=== PATIENT | female | born 1960 | race Caucasian/White ===

== ENCOUNTER → 2023-12-06 16:15 | Outpatient (REF) | payer BC, SELFPAY | LOC: RAD 16:15 | PROVIDERS: ATTENDING PHYSICIAN Physician Assistant; FAMILY PHYSICIAN Student in an Organized Health Care Education/Training Program | DX: M25.551 Pain in right hip (principal); M54.50 Low back pain, unspecified | CPT/HCPCS: 72100; 73502 ==

== ENCOUNTER → 2023-12-23 17:26 | Outpatient (REF) | payer BC, SELFPAY | LOC: WDC 17:26 | PROVIDERS: ATTENDING PHYSICIAN Obstetrics & Gynecology Gynecology; FAMILY PHYSICIAN Student in an Organized Health Care Education/Training Program | DX: Z12.31 Encounter for screening mammogram for malignant neoplasm of breast (principal); Z85.3 Personal history of malignant neoplasm of breast | CPT/HCPCS: 77063; 77067 ==

== ENCOUNTER → 2024-03-16 06:36 | Day surgery (SDC) | payer BC, SELFPAY | LOC: GI 06:36 | PROVIDERS: ATTENDING PHYSICIAN Specialist | DX: Z12.11 Encounter for screening for malignant neoplasm of colon (principal); K63.5 Polyp of colon; K57.30 Diverticulosis of large intestine without perforation or abscess without bleeding; R19.7 Diarrhea, unspecified; K29.70 Gastritis, unspecified, without bleeding; K31.7 Polyp of stomach and duodenum; R10.13 Epigastric pain; Z86.0101 Personal history of adenomatous and serrated colon polyps | CPT/HCPCS: 45380; 43239; 88305; 88342 ==

== ENCOUNTER → 2024-05-18 13:44 | Outpatient (REF) | payer BC, SELFPAY | LOC: HWRCS 13:44 | PROVIDERS: ATTENDING PHYSICIAN Internal Medicine Cardiovascular Disease; FAMILY PHYSICIAN Student in an Organized Health Care Education/Training Program | DX: I42.9 Cardiomyopathy, unspecified (principal); E78.00 Pure hypercholesterolemia, unspecified; R00.2 Palpitations; R00.0 Tachycardia, unspecified | CPT/HCPCS: 93306 ==

== ENCOUNTER 2024-06-16 06:34 | Inpatient (IN) | payer BC, SELFPAY ==
[2024-06-16] VITALS (12 sets, daily range): BP systolic 103–158; BP diastolic 70–95; BMI 29.3; BMI 29.0
--- NOTE | 2024-06-16 02:56 | ED.GENMED ---
History of Present Illness
General
Chief Complaint: Breathing Problem
Source: patient
Exam Limitations: none
Time Seen by Provider: 06/16/24 02:48
Nursing documentation reviewed up to this point in time: agreed with
History of Present Illness
History of Present Illness:
Pleasant 63-year-old female presenting with right upper back pain that she states 'feels like a blood clot '. She states that tonight she awakened with tachycardia and dyspnea. Patient finished Paxlovid on June 10 after being diagnosed with
COVID on June 05. Patient denies fever or chills. Denies chest pain.
Past History
Past History
ED Past Medical History: GERD, Hypothyroidism and Other (BREAST CA)
ED Past Surgical History: Tonsilectomy and Other (H. has a history of lumpectomy on the left breast with excision, port insertion,)
Social History
Tobacco: Non-smoker
Alcohol: Occasional
Drug: None
Personal:
Living: with family
Employment: Employed
Review of Systems
Review of Systems
Allergies reviewed?: Yes
All Other Systems: ROS reviewed and negative except as documented in HPI and ROS
Constitutional: Reports sleep disturbance; Denies fever or chills
EENT: Reports no symptoms
Respiratory: Reports trouble breathing
Cardiac: Reports chest pain
ABD/GI: Reports no symptoms
: Reports no symptoms
Musculoskeletal: Reports back pain
Skin: Reports no symptoms
Neurological: Reports no symptoms
Endocrine: Reports no symptoms
Hematologic/Lymphatic: Reports no symptoms
Psychiatric: Reports no symptoms
Phy Exam
General Physical Exam
General Presentation: well appearing and moderate distress
General Skin: warm and dry
General Habitus: normal
General Mental: alert
General Hydration: appears well hydrated
ENT Exam
ENT Exam: EOMI, pharynx normal, neck supple and normocephalic
Eye Exam
Eye Exam: PERRL, cornea clear and conjunctiva normal
Cardiovascular Exam
Cardiovascular Exam: regular rate/rhythm, no edema, no murmur and normal peripheral pulses
Pulmonary Exam
Pulmonary Exam: lungs clear, no respiratory distress, no rales, no crackles, no rhonchi, no stridor, no wheezing and no cough
Gastrointestinal Exam
Gastrointestinal Exam: normal bowel sounds, non tender, soft, no organomegaly, no pulsatile mass and non distended
Neurological Exam
Neurological Exam: alert, oriented x3, no motor deficits and speech normal
Musculoskeletal Exam
Musculoskeletal Exam: full ROM, no edema and other (Negative Homans' sign bilaterally)
Skin Exam
Skin Exam: normal color, warm/dry, no rash and no petechia
Psychiatric Exam
Psychiatric Exam: normal mood/affect
Scores
Heart Failure Risk
Heart Failure Risk Score: Not Applicable
Course
Orders/Labs/Results
Orders:
Orders
06/16/24 02:28
Electrocardiogram (*1) Urgent
Reason for Study: Other
Other Reason for Exam: Respiratory Distress
Cardiac Monitoring- Treatment ONCE
EKG- Treatment ONCE
IV Insert/Care/Rem.- Treatment PRN
CR Chest - 2 Views Urgent
Comment:
Reason For Exam: respiratory distress
O2 Therapy [RESP] Urgent
Titrate/Wean O2 to maintain O2 sat greater than (%): 93
Special Instructions: TO MAINTAIN CONTINUOUS O2 SATS >/= 93%
Pulse Ox/cont/shift [RESP] Urgent
Quantity: 1
Special Instructions: continuous pulse ox
06/16/24 02:42
CT Chest PE Study Urgent
Comment:
Reason For Exam: covid 8 days ago,. CP/Tachy/Dyspena
06/16/24 03:56
Complete Blood Count/With Diff Urgent
Comprehensive Metabolic Panel Urgent
NT-proBNP Urgent
TSH Reflex To Free T4 Routine
Troponin I Urgent
06/16/24 05:06
Morphine Sulfate 4 mg IV NOW STA
Ondansetron Injectable [Zofran] 4 mg IV NOW STA
06/16/24 05:33
Heparin 6,200 units IV NOW STA
Nursing to Place Non Medication Order As Directed
Physician Order: PTT 6 hours after initial start of Heparin infusion
Above order entered?: Yes
06/16/24 05:35
PTT Urgent
Comment: Obtain baseline before beginning heparin infusion if not already collected
Prothrombin Time Urgent
06/16/24 Breakfast
Regular
At Your Request: Full Participation
Levothyroxine [Synthroid] 100 mcg PO DAILY@0600
06/16/24 06:02
Admit/Transfer Patient As Directed
Co-Sign Provider:
Level of Care: Inpatient admission
Assign to:: Telemetry
Physician / Group: Richard
Diagnosis: PE
Reason for Telemetry: Chest Pain syndromes
Date to Stop Telemetry: 06/18/24
Time to Stop Telemetry: 11:00
Reason for Hospitalization: PE
Expected length of stay greater than two midnights?: Yes
ELOS- Estimated Length of Stay in days: 2
I certify the patient meets the requirements for IP care: Yes
PRN Pain Medication Management As Directed
May give lesser potent ordered pain med per pt: Yes
preference::
Protocol:: Medication orders for pain may be administered in a
manner that supports deferring to patient preference
when the pt is:
- Requesting an ordered lesser potent pain medication.
Least to most potent pain medications are defined
as: acetaminophen < NSAID < tramadol < opioids
(morphine, oxycodone, hydromorphone).
- Requesting a lesser dose of the same medication IF
ORDERED.
- Requesting a less intrusive route of administration
if both routes are prescribed by the provider (PO <
IV).
06/16/24 06:03
Code Status As Directed
Resuscitation Status: Full Code
06/16/24 06:30
Heparin 98587 Units/250 ml 25,000 units in 250 ml IV PER PROTOCOL
Weight to be used for heparin protocol in kilograms (kg):: 77.5
Protocol:: DVT/PE
PTT Goal Range to be used:: PTT 73 to 111 seconds
Order type:: Initial
INITIAL Infusion Dose (UNITS/KG/hr) & then follow protocol:: 18 units/kg/hr
Infusion Dose in UNITS/hr & then follow protocol (UNITS/hr):: 1,400
INFUSION RATE in mL/hr & then follow protocol (mL/hr):: 14
For DVT/PE algorithm, re-bolus for low PTT?: Yes
PTT less than or equal to 64 seconds:: Re-bolus 80 units/kg (max 10,000units). Increase by 300 units/hr
(+ 3mL/hr)
PTT 64.1 to 72.9 seconds:: Re-bolus 40 units/kg (max 5,000 units). Increase by 200 units/hr
(+ 2mL/hr)
PTT 73 to 111 seconds:: Target Range. No change in rate.
PTT 111.1 to 130.9 seconds:: Decrease rate by 200 units/hr (- 2 mL/hr)
PTT 131 to 199.9 seconds:: HOLD for 1 hr. Then decrease by 200 units/hr (- 2mL/hr)
PTT greater than or equal to 200 seconds:: HOLD for 2 hrs & Notify Provider. Then decrease by 300 units/hr
(- 3mL/hr)
Lab follow-up:: Each change, PTT q6h until 2 consecutive are therapeutic. Then
PTT daily.
06/16/24 06:58
Acetaminophen [Tylenol] 650 mg PO Q4HPRN PRN
Morphine Sulfate 2 mg IV Q4HPRN PRN
06/16/24 06:58
Heparin Protocol- PTT Orders As Directed
PTT per Heparin protocol: -Obtain CBC and baseline PTT - if not already collected.
-Obtain PTT 6 hours from start of infusion. Then, every 6 hours until 2 consecutive
PTT's are therapeutic. Then, PTT Daily.
-With each rate change, obtain PTT every 6 hours until 2 consecutive PTT's are
therapeutic. Then, PTT Daily.
Activity As Directed
Activity Level: Ambulate
With Assistance
EKG with chest pain [ECG as needed] As Directed
ECG as needed for:: Chest Pain
I/O [Intake/ Output] As Directed
Frequency: Per unit guidelines
Notify MD As Directed
Notify physician if: PTT is greater than or equal to 200.
Precautions As Directed
Type of Precautions: Droplet
Vital Signs As Directed
Frequency: Per unit guidelines
Weight As Directed
Frequency: Daily
Oxygen Therapy [O2 Therapy] [RESP] Routine
Titrate/Wean O2 to maintain O2 sat greater than (%): 94
US Periph Venous LOWER Ext Bj Routine
Comment: Not urgent. Already on anticoagulation.
Reason For Exam: PE, ? DVT
06/16/24 08:00
Aspirin Chewable [Low Strength Aspirin] 81 mg PO DAILY
Dapagliflozin [Farxiga] 10 mg PO DAILY
Lisinopril [Zestril] 2.5 mg PO DAILY
Metoprolol [Lopressor] 12.5 mg PO BID
Pantoprazole [Protonix] 40 mg PO DAILY
06/16/24 12:51
Troponin I Q6H
06/17/24 06:00
EKG [Electrocardiogram (*1)] IN AM
Reason for Study: Chest Pain
06/17/24 07:23
Basic Metabolic Panel IN AM
06/18/24 06:57
Complete Blood Count/No Diff Q2D
Comment: notify provider: Platelet count < 130,000 or decrease by 50% from baseline
06/18/24 11:00
DC Protocol for Telemetry ONCE
Abnormal Lab Results
06/16/24
03:56
WBC 11.5 H 10^3/uL
(4.8-10.8)
Absolute Neuts (auto) 8.9 H 10^3/uL
(1.4-6.5)
Absolute Monos (auto) 0.8 H 10^3/uL
(0.1-0.6)
Neutrophils % 77.9 H %
(42.2-75.2)
Lymphocytes % 14.0 L %
(20.5-51.1)
Chloride 94 L mmol/L
(98-107)
Glucose 106 H mg/dl
(70-99)
TSH (Reflex) 23.50 H uIU/ml
(0.47-4.68)
06/16/24 03:56
06/16/24 03:56
Vital Signs
Initial and Last Documented VS:
Initial Vital Signs
Temp Pulse Resp BP Pulse Ox
98.5 F 144 28 158/88 94
06/16/24 02:21 06/16/24 02:21 06/16/24 02:21 06/16/24 02:21 06/16/24 02:21
Last Documented Vital Signs
Temp Pulse Resp BP Pulse Ox
98.3 F 82 18 110/65 95
06/18/24 11:00 06/18/24 11:00 06/18/24 11:00 06/18/24 11:00 06/18/24 11:00
*EKG
Interpretation: abnormal
Heart Rate: 128
Rate: tachycardiac
Rhythm: sinus tachycardia
[place]: indeterminate
QRS Pattern: left bundle branch block
Ischemia: non-specific ST changes
*Mobile Mechanic Interpretation
Rate: tachycardiac
Rhythm: sinus tachycardia
*Critical Care Note
Total Time (30-74mins, 75-104mins- exclusive of procedures): Critical care statement: (30 minutes critical care)
Update Note
Update Note:
CT PULMONARY ANGIOGRAM:
IMPRESSION
Pulmonary emboli in the posterior basilar segment of the right lower lobe and the lingula on the left. No evidence for increased right heart pressures. The right ventricular/left ventricular ratio is .66 (normal is < 0.9). No flattening of the
intraventricular septum. No reflux of contrast into the IVC.
Small pulmonary infarct in the right lower lobe. Mild motion artifact decreases characterization.
Images of the aorta are without evidence of aneurysm .
Critical care statement: A total of 30 minutes of critical care time was provided for this patient. This time is separate from time utilized to perform the aforementioned documented procedures. Aggregate critical care time includes only time
during which I was engaged in work directly related to the patient's care, as described above, whether at the bedside or elsewhere in the Emergency Department.
ED Attending Note
-
Portions of this chart may have been created with voice recognition software.� Occasional wrong word or��sound alike� substitutions may have occurred due to the inherent limitations of voice recognition software.
Discharge Plan
Departure
Patient Disposition: Admit
Date of Disposition: 06/16/24
Time of Disposition: 05:33
Admit to: IMU
Presentation/result/management discussed w/ accepting MD/DO: Hospitalist
Discharge Problem:
Pulmonary emboli, Pulmonary infarct
Interventions
Interventions:
*Risk Screen - Suicide Last Done: 06/16/24 02:26
*General Assessment Last Done: 06/16/24 03:07
*Neglect/Abuse Screening Last Done: 06/16/24 02:26
*ED COVID-19 Vaccine History Last Done: 06/16/24 02:26
*Nursing Disposition Last Done: 06/16/24 18:00
ED- Cardiac Assessment Last Done: 06/16/24 03:07
ED- Pulmonary Assessment Last Done: 06/16/24 03:07
Discharge Date and Time
Discharge Date/Time: 06/16/24 18:00
[2024-06-16 04:09] LABS: % Basophils 0.3 % (0-2); % Eosinophils 0.2 % (0-6); % Immature Granulocytes 0.3 % (0-0.5); % Monocytes 7.3 % (1.7-9.3); % Neutrophils 77.9 % (42.2-75.2); Absolute Lymphocytes 1.6 10^3/uL (1.2-3.4); Absolute Monocytes 0.8 10^3/uL (0.1-0.6); Absolute Neutrophils 8.9 10^3/uL (1.4-6.5); Hematocrit 44.2 % (37.0-47.0); Mean Corp Hgb Conc. 33.9 g/dL (33.0-37.0); Mean Corpuscular Hgb 29.4 pg (27.0-31.0); Mean Corpuscular Volume 86.5 fL (81.0-99.0); Mean Platelet Volume 9.1 fL (7.4-10.4); Nucleated Red Blood Cells % 0 %; Platelet Count 264 10^3/uL (130-400); Red Blood Cell Count 5.11 10^6/uL (4.20-5.40); Red Cell Dist. Width 12.4 % (11.5-14.5); White Blood Cell Count 11.5 10^3/uL (4.8-10.8)
[2024-06-16 04:31] LABS: ALT (SGPT) 26 U/L (0-35); AST (SGOT) 30 U/L (14-36); Albumin 4.5 g/dl (3.5-5.0); Alkaline Phosphatase 99 U/L (38-126); Blood Urea Nitrogen 13 mg/dl (7-17); Calcium 9.2 mg/dl (8.4-10.2); Carbon Dioxide 28 mmol/L (22-30); Chloride 94 mmol/L (98-107); Estimated Creatinine Clearance 82 ml/min; Glucose 106 mg/dl (70-99); Potassium 4.1 mmol/L (3.5-5.1); Sodium 135 mmol/L (135-145); Total Bilirubin 0.8 mg/dl (0.2-1.3); Total Protein 7.5 g/dl (6.3-8.2); eGFR > 60.00
[2024-06-16 04:44] LABS: NT-proBNP 378 pg/ml; Troponin I < 0.012 ng/ml
[2024-06-16] MEDS: ZOFRAN 4 MG IV ×4 (05:13→21:50)
[2024-06-16] MEDS: MORPHINE SULFATE 4 MG IV (05:15)
[2024-06-16 06:02] LABS: INR 0.95; PT 13.2 Sec (11.4-14.6)
[2024-06-16 06:03] LABS: APTT 32.4 Sec (23.4-35.0)
--- NOTE | 2024-06-16 06:05 | HPS.HSE ---
Family Physician
-
Family Physician: Nena Mott MD
Chief Complaint
-
Chest Pain / SOB
History of Present Illness
Patient is a 63y F with PMH significant for breast cancer s/p treatment, prior DVT and non-ischemic cardiomyopathy who presents to ED complaining of chest pain and SOB that woke her from sleep this evening. Patient states that she developed
symptoms of headache, cough, fevers and chills on 06/02. She tested positive for COVID-19 and was started on Paxlovid on 06/04. Patient states that she felt remarkably well while on the Paxlovid; unfortunately, she developed recurrent symptoms
once her course was completed. Patient has continued with headache and cough for the past several days.
This evening, she woke from sleep with R sided chest discomfort and shortness of breath.
Patient has prior history of DVT and states that this felt 'just like my DVT, but in my chest'.
Patient presented to the ED for further evaluation and treatment. CTA in the ED shows R sided PEs and RLL pulmonary infarct.
Medical History
Past Medical History
Past Medical History: Reports Other
Additional Past Medical History:
Breast Cancer s/p Lumpectomy (x 2), Chemo and XRT
Non-Ischemic Cardiomyopathy / Chronic HFmrEF
History of DVT (2012)
Hypothyroidism
Past Surgical History: Reports Other
Additional Past Surgical History:
Left Lumpectomy / Lymph Node Dissection (x 2)
T&A
D&E
Port Placement / Removal
Social History
Tobacco: Non-smoker
Alcohol: Occasional
Drug: None
Personal:
Living: With Family
Family History
Family History: Not pertinent
Allergies / Home Medications
Allergies reflects when Allergies were last updated in [facility].
Home Medications with original date entered in [facility] [facility]
Allergy/Medication List:
Allergies
Allergy/AdvReac Type Severity Reaction Status Date / Time
Penicillins Allergy Rash Verified 09/05/18 07:50
Home Medications
aspirin 81 mg chewable tablet 81 mg PO DAILY 09/05/18
lisinopril 2.5 mg tablet 2.5 mg PO DAILY #90 tabs 09/05/18
metoprolol tartrate 25 mg tablet 12.5 mg PO BID 09/05/18
dapagliflozin propanediol 10 mg tablet (Farxiga) 10 mg PO DAILY 06/16/24
esomeprazole magnesium 20 mg capsule,delayed release (Nexium) 20 mg PO DAILY 06/16/24
levothyroxine 100 mcg tablet 100 mcg PO DAILY 06/16/24
Review of Systems
-
History Source: Patient
A 12 point ROS was completed and negative except as noted: Yes
Constitutional: Reports Fatigue; Denies Fever or Chills
EENT: Denies Sore Throat
Respiratory: Reports Cough and Trouble Breathing
Cardiac: Reports Chest Pain; Denies Diaphoresis, Palpitations or Syncope
Abdomen/GI: Reports Nausea; Denies Abdominal Pain, Vomiting or Diarrhea
: Denies Dysuria, Frequency or Flank Pain
Musculoskeletal: Denies Joint Pain or Edema
Neurological: Reports Headache; Denies Dizzy, Weakness or Numbness
Psych: Denies Depression or Anxiety
Physical Exam
Vital Signs
Vital Signs
Temp Pulse Resp BP Pulse Ox
98.5 F 124 18 132/95 98
06/16/24 02:21 06/16/24 05:30 06/16/24 05:30 06/16/24 05:20 06/16/24 05:30
Physical Exam
General: Other (63y F in no acute distress.)
HEENT: Moist mucous membranes and Other (Injected sclera / inflamed conjunctiva - R > L.)
Respiratory: Other (Few coarse breath sounds over the R base.)
Cardiac: S1/S2 and Tachycardia; No Murmur
GI: Soft, Non Tender, Non Distended and Normal Bowel Sounds
Musculoskeletal: No Clubbing, No Cyanosis and No Edema
Neuro: AO x 3
Laboratory Results
-
06/16/24 03:56
06/16/24 03:56
Laboratory Results
Total Bilirubin 0.8 mg/dl (0.2-1.3) 06/16/24 03:56
AST 30 U/L (14-36) 06/16/24 03:56
ALT 26 U/L (0-35) 06/16/24 03:56
Alkaline Phosphatase 99 U/L (38-126) 06/16/24 03:56
Troponin I < 0.012 ng/ml 06/16/24 03:56
Impression/Plan
-
A/P: Patient is a 63y F with PMH significant for breast cancer, prior DVT and cardiomyopathy who presents to ED complaining of chest pain and SOB that woke her from sleep.
Pulmonary Emboli
RLL Pulmonary Infarct
- Admit to monitored bed for further evaluation and treatment.
- Continue IV heparin x 24-48 hours and then switch to OAC prior to discharge.
- PE likely secondary to COVID-19 infection (see below).
- Note prior history of DVT (also provoked / secondary to malignancy, etc).
- Follow-up with PCP to discuss duration of treatment +/- lifelong anticoagulation.
- Follow for any new / recurrent symptoms.
- Supportive care including pain control, etc.
COVID-19 Infection
- Maintain droplet precautions for now - though doubt active spread at this point.
- Initial symptoms on 06/02 and s/p 5 days of Paxlovid (then recurrent / rebound symptoms).
- Afebrile and states that cough / headache are beginning to improve.
- Patient is vaccinated / boosted versus SARS-CoV-2.
- Follow temperature curve. Monitor for any new / worsening symptoms.
Non-Ischemic Cardiomyopathy
Chronic HFmrEF
- Thought secondary to prior chemotherapy.
- Echo was just completed 05/2024 with LVEF = 45%.
- Would hold on repeat for now with stable hemodynamics, normal trop / BNP and no evidence for RV strain on CT imaging.
- Continue current med regimen including Farxiga, lisinopril, etc.
Hypothyroidism
- Stable. Continue T4 replacement.
History of Breast Cancer
- s/p surgery, chemo and XRT.
- No active issues per patient.
DVT Prophylaxis: On IV heparin. Check routine LE dopplers for completeness.
Code Status: Full
[2024-06-16] MEDS: HEPARIN 6200 UNITS IV ×2 (06:07→21:06)
[2024-06-16] MEDS: HEPARIN 25000 UNITS/250 ML IV (06:42)
[2024-06-16] MEDS: MORPHINE SULFATE 2 MG IV ×3 (09:16→20:28)
[2024-06-16] MEDS: FARXIGA 10 MG PO (09:17)
[2024-06-16] MEDS: ZESTRIL 2.5 MG PO (09:17)
[2024-06-16] MEDS: PROTONIX 40 MG PO (09:17)
[2024-06-16] MEDS: LOW STRENGTH ASPIRIN 81 MG PO (09:18)
[2024-06-16] MEDS: SYNTHROID 100 MCG PO (09:18)
[2024-06-16] MEDS: LOPRESSOR 12.5 MG PO ×2 (09:18→20:12)
[2024-06-16 13:18] LABS: APTT 105.9 Sec (23.4-35.0)
[2024-06-16 13:23] LABS: Troponin I < 0.012 ng/ml
--- NOTE | 2024-06-16 13:44 | W.PN.HOSP.TC ---
Today's Communication/Plan
-
Remains hemodynamically stable with stable respiratory status.
Continue IV heparin with plan to transition to Eliquis on 06/17.
Pulmonology evaluation
Tylenol with addition of low-dose of oxycodone for pain
Zofran for nausea
Continue respiratory isolation
Assessment / Plan
Assessment / Plan
A/P: Patient is a 63y F with PMH significant for breast cancer, prior DVT and cardiomyopathy who presents to ED complaining of chest pain and SOB that woke her from sleep.
Pulmonary Emboli
RLL Pulmonary Infarct. Lower extremity peripheral Doppler negative for DVT
- Admit to monitored bed for further evaluation and treatment.
- Continue IV heparin x 24-48 hours and then switch to OAC prior to discharge.
- PE likely secondary to COVID-19 infection (see below).
- Note prior history of DVT (also provoked / secondary to malignancy, etc).
- Follow-up with PCP to discuss duration of treatment +/- lifelong anticoagulation.
- Follow for any new / recurrent symptoms.
- Supportive care including pain control, etc.
COVID-19 Infection
- Maintain droplet precautions for now - though doubt active spread at this point.
- Initial symptoms on 06/02 and s/p 5 days of Paxlovid (then recurrent / rebound symptoms).
- Afebrile and states that cough / headache are beginning to improve.
- Patient is vaccinated / boosted versus SARS-CoV-2.
- Follow temperature curve. Monitor for any new / worsening symptoms.
Non-Ischemic Cardiomyopathy suspected secondary to Adriamycin.
Chronic HFmrEF
- Thought secondary to prior chemotherapy.
- Echo was just completed 05/2024 with LVEF = 45%.
- Would hold on repeat for now with stable hemodynamics, normal trop / BNP and no evidence for RV strain on CT imaging.
- Continue current med regimen including Farxiga, lisinopril, etc.
Hypothyroidism
- Stable. Continue T4 replacement.
History of Breast Cancer
- s/p surgery, chemo and XRT.
- No active issues per patient.
DVT Prophylaxis: On IV heparin.
Code Status: Full
Anticipated Discharge: 24 - 48 hours
Subjective/Interval History
-
Date of Service: June 16, 2024
Objective Data
-
Labs:
Laboratory Results
06/16/24 06/16/24 06/16/24
03:56 05:35 12:51
WBC 11.5 H
Hgb 15.0
Hct 44.2
Plt Count 264
PT 13.2
INR 0.95
APTT 32.4 105.9 H
Sodium 135
Potassium 4.1
Chloride 94 L
Carbon Dioxide 28
BUN 13
Creatinine 0.7
Glucose 106 H
Calcium 9.2
Total Bilirubin 0.8
AST 30
ALT 26
Alkaline Phosphatase 99
Vital Signs:
Vital Signs
Temp Pulse Resp BP Pulse Ox
98.5 F 81 17 109/75 97
06/16/24 02:21 06/16/24 12:30 06/16/24 12:57 06/16/24 12:00 06/16/24 12:30
Physical Exam
-
General: Well Developed and No Apparent Distress
HEENT: Normocephalic, Atraumatic and Moist Mucous Membranes
Respiratory: Clear to Auscultation
Cardiac: Regular Rhythm and S1/S2; Negative Murmur, Rub or Gallop
GI: Soft, Nontender, Nondistended and Normal Bowel Sounds; Negative Organomegaly
Rectal: Deferred by Provider
Musculoskeletal: No Clubbing, No Cyanosis and No Edema
Skin: Negative Rash
Neuro: Nonfocal/Grossly Intact
[2024-06-16] MEDS: TYLENOL 650 MG PO ×2 (14:04→20:22)
--- NOTE | 2024-06-16 14:22 | CON.PUL ---
Addendum entered and electronically signed by Kali Dalton MD 06/16/24 17:15:
Patient's brother might have a family history of some sort of clotting disorder
This was an unprovoked event-recommend hematology/hypercoagulable workup in the future
Disregard outpatient prostate exam
Original Note:
Consultation
Consultation Request
Date/Time Consultation Requested: 06/16/24-3 pm
Date/Time Consultation Performed: 06/16/24-4 pm
Requesting Provider: hospitalist
Performing Provider: , Dr. Dalton
Reason for Consultation: , shortness of breath/pulmonary embolism
Medical History
-
Chief Complaint: shortness of breath
History of Present Illness:
63-year-old female history of breast cancer, prior DVT, ischemic cardiomyopathy who presented with shortness of breath and chest pain, found to have a pulmonary embolism-pulmonary consult for pulmonary embolism 06/16/24.Patient states that she has
had DVTs in the past 1 postop that was likely provoked. She was aware that she may be clot prone if she is sedentary and with recent infection she continued to try to stay as active as possible. She did have COVID with subsequent rebound. She did
have vaccinations. She does not have a history of previously being hypercoagulable. She developed back pain that was pleuritic. She currently has diminished back pain but pleurisy persists, no shortness of breath at rest, no chest pain, abdominal
pain, leg swelling or weakness.
Past Medical History
Past Medical History: None ( Breast cancer status post lumpectomy, chemotherapy, radiation ischemic cardiomyopathy. Chronic heart failure (CHF. 2013. Hypothyroid., left lumpectomy. Tonsillectomy.. Replacement/)
Social History
Tobacco: Non-smoker
Alcohol: Occasional
Drug: None
Personal:
Living: With Family
Occupational Exposures: , . No known asbestos exposure
Environmental Exposures: no known tuberculosis exposure
Family History
Family History: Reviewed & Not Pertinent
Allergies / Home Medications
Allergies
Allergy/AdvReac Type Severity Reaction Status Date / Time
Penicillins Allergy Rash Verified 09/05/18 07:50
Home Medications
�Medication �Instructions �Recorded �Confirmed �Last Taken �Type
lisinopril 2.5 mg tablet 2.5 mg PO DAILY #90 tabs 09/05/18 06/16/24 Unknown Rx
metoprolol tartrate 25 mg tablet 12.5 mg PO BID 09/05/18 06/16/24 09/04/18 21:30 History
acetaminophen 500 mg tablet 1,000 mg PO Q6HPRN PRN headaches 06/16/24 06/16/24 Unknown History
(Tylenol Extra Strength)
dapagliflozin propanediol 10 mg 10 mg PO DAILY 06/16/24 06/16/24 Unknown History
tablet (Farxiga)
esomeprazole magnesium 20 mg 20 mg PO DAILY 06/16/24 06/16/24 Unknown History
capsule,delayed release (Nexium)
levothyroxine 100 mcg tablet 100 mcg PO DAILY 06/16/24 06/16/24 Unknown History
Review of Systems
-
Unable to Obtain full review of systems at this time due to: Other (per HPI)
Vitals / Labs / Diagnostic Testing
Vital Signs
Temp Pulse Resp BP Pulse Ox
98.5 F 81 17 109/75 97
06/16/24 02:21 06/16/24 12:30 06/16/24 12:57 06/16/24 12:00 06/16/24 12:30
Lab Data
06/16/24 03:56
06/16/24 03:56
Laboratory Results
06/16/24 06/16/24
05:35 12:51
PT 13.2
INR 0.95
APTT 32.4 105.9 H
Diagnostic Testing:
Physical Exam
-
Exam:
HEENT atraumatic normocephalic and anicteric. Heart was regular without murmur, RV heave or increased P2 Chest was clear without wheezes or crackles. Integument without rashes or icterus. Neurologic exam without weakness or numbness. Abdomen
soft and nondistended. The patient had no JVD, cyanosis, clubbing or edema.
Assessment
-
63-year-old female history of breast cancer, prior DVT, ischemic cardiomyopathy who presented with shortness of breath and chest pain, found to have a pulmonary embolism-pulmonary consult for pulmonary embolism 06/16/24.
Pulmonary embolism-small to moderate clot burden without evidence for strain-unprovoked except somewhat sedentary and covid infection
PESI 114 class IV high risk, no evidence for right ventricular strain
Pulmonary infarct.
Covid infection-symptom onset 06/02. Status post 5 days Plaxlovid then recurrent with rebound.
Vaccinated and boosted
Nonischemic cardiomyopathy with reduced EF 45%.
Leukocytosis.
Mild hyperglycemia
Conditions present prior to admission:
Breast cancer status post lumpectomy, chemotherapy, radiation
ischemic cardiomyopathy.
Chronic heart failure -reduced EF-related to prior chemotherapy
DVT 2012.
Hypothyroid.
Obesity
Left lumpectomy. Tonsillectomy.. port placement/removal. D and E.
Plan
Patient will be admitted To telemetry
Supplemental oxygen as needed
Aspiration precautions
Incentive spirometry
CT chest personally reviewed--See below
Check echocardiogram
Lower extremity ultrasound negative for DVT
May need eventual hypercoagulable workup
Full PESI -Score above
Heparin drip or Lovenox 1 mg/kg every 12 hours
Benefits and risks of thrombolytics therapy were reviewed with patient
Patient has mild tachycardia and no hypotension-currently risks of aggressive thrombolytic therapy outweigh [id number] notified of options, reasons for conservative standard of care therapy and is in agreement
Bedrest �24 hours
DVT prophylaxis-on full anticoagulation
Early nutrition
Early mobilization
Outpatient pulmonary follow-up
Outpatient appropriate malignancy screening including colonoscopy and prostate exam
A total of 65 minutes of critical care time was provided for this patient today. This includes management of unstable vital signs, evaluation for thrombolytic therapy, management of large pulmonary embolism, evaluation of the patient at bedside,
reviewing the patient's pertinent medical records including radiographs, microbiology, laboratory evaluations, and discussion with primary team, consultants, pharmacy, and critical care nursing.
Studies:
Chest x-ray 06/16/24-NAD
CT chest, abdomen and pelvis 01/16/21-status post left lumpectomy, no CT evidence for recurrent malignancy, fatty infiltration of the liver,.
CT chest 06/16/24-peripheral pulmonary emboli in the lingula in the right lower lobe, no evidence for right ventricular strain.
Lower extremity ultrasound 06/16/24-no evidence for DVT.
Echocardiogram 05/18/24-EF 45-50%, no valvular disease
Data Reviewed
-
EKG: Report reviewed by me
Radiology: Image personally visualized and interpreted and Report reviewed by me
CT Scan: Image personally visualized and interpreted and Report reviewed by me
Ultrasound: Report reviewed by me
Medical Tests (Nuc Med, Echo etc): Report reviewed by me
Old Records: Reviewed
Total Time Spent with Patient (in minutes): 55
[2024-06-16 15:46] LABS: Free T4 1.04 ng/dl (0.78-2.19)
[2024-06-16 19:54] LABS: APTT 58.7 Sec (23.4-35.0)
[2024-06-16] MEDS: COMPAZINE 5 MG IV (23:42)
[2024-06-17] MEDS: HEPARIN 25000 UNITS/250 ML IV (01:50)
[2024-06-17 03:06] VITALS: BP 119/71
[2024-06-17] MEDS: SYNTHROID 100 MCG PO (05:01)
[2024-06-17] MEDS: MORPHINE SULFATE 2 MG IV (05:02)
[2024-06-17 05:03] LABS: APTT > 200 Sec (23.4-35.0)
[2024-06-17] MEDS: COMPAZINE 5 MG IV (05:46)
[2024-06-17 06:00] VITALS: BMI 28.7
[2024-06-17 07:00] VITALS: BP 120/76
[2024-06-17 08:16] LABS: Blood Urea Nitrogen 14 mg/dl (7-17); Calcium 9.1 mg/dl (8.4-10.2); Carbon Dioxide 32 mmol/L (22-30); Chloride 91 mmol/L (98-107); Estimated Creatinine Clearance 81 ml/min; Glucose 99 mg/dl (70-99); Potassium 4.7 mmol/L (3.5-5.1); Sodium 132 mmol/L (135-145); eGFR > 60.00
[2024-06-17] MEDS: ZESTRIL 2.5 MG PO (09:29)
[2024-06-17] MEDS: FARXIGA 10 MG PO (09:29)
[2024-06-17] MEDS: PROTONIX 40 MG PO (09:29)
[2024-06-17] MEDS: LOW STRENGTH ASPIRIN PO (09:31)
[2024-06-17] MEDS: LOPRESSOR 12.5 MG PO ×2 (09:31→20:17)
[2024-06-17 11:00] VITALS: BP 103/66
[2024-06-17] MEDS: ZOFRAN 4 MG IV (11:39)
[2024-06-17] MEDS: ROXICODONE 5 MG PO (11:40)
--- NOTE | 2024-06-17 13:47 | W.PN.PUL3 ---
Today's Communication / Plan
-
Doing well today, remains on low O2 use, home O2 eval placed
Transition to Eliquis today per team, we discussed OP management
Hopeful discharge planning per team post transition
Information left in discharge for OP FU
Assessment
-
63-year-old female history of breast cancer, prior DVT, ischemic cardiomyopathy who presented with shortness of breath and chest pain, found to have a pulmonary embolism-pulmonary consult for pulmonary embolism 06/16/24.
Pulmonary embolism-small to moderate clot burden without evidence for strain-unprovoked except somewhat sedentary and covid infection
PESI 114 class IV high risk, no evidence for right ventricular strain
Pulmonary infarct.
Covid infection-symptom onset 06/02. Status post 5 days Plaxlovid then recurrent with rebound.
Vaccinated and boosted
Nonischemic cardiomyopathy with reduced EF 45%.
Leukocytosis.
Mild hyperglycemia
Conditions present prior to admission:
Breast cancer status post lumpectomy, chemotherapy, radiation
ischemic cardiomyopathy.
Chronic heart failure -reduced EF-related to prior chemotherapy
DVT 2012.
Hypothyroid.
Obesity
Left lumpectomy. Tonsillectomy.. port placement/removal. D and E.
Plan
Patient will be admitted to telemetry
Supplemental oxygen as needed, 95% on 2L--home O2 eval
Aspiration precautions
Incentive spirometry
CT chest personally reviewed--See below
Check echocardiogram--reviewed with low function, h/o NICM/stable EF
Lower extremity ultrasound negative for DVT
May need eventual hypercoagulable workup, has fam hx of VTE
Full PESI -Score above
Heparin drip ongoing
Transition to eliquis per team
Benefits and risks of thrombolytics therapy were reviewed with patient
Patient has mild tachycardia and no hypotension-currently risks of aggressive thrombolytic therapy outweigh [id number] notified of options, reasons for conservative standard of care therapy and is in agreement
DVT prophylaxis-on full anticoagulation
Early nutrition
Early mobilization
Outpatient pulmonary follow-up
Outpatient appropriate malignancy screening including colonoscopy and prostate exam
Studies:
Chest x-ray 06/16/24-NAD
CT chest, abdomen and pelvis 01/16/21-status post left lumpectomy, no CT evidence for recurrent malignancy, fatty infiltration of the liver,.
CT chest 06/16/24-peripheral pulmonary emboli in the lingula in the right lower lobe, no evidence for right ventricular strain.
Lower extremity ultrasound 06/16/24-no evidence for DVT.
Echocardiogram 05/18/24-Mildly reduced left ventricular function. Estimated ejection fraction of 45 to 50%. Abnormal septal motion related to IVCD. Possible inferoseptal and anteroseptal hypokinesis. No significant valve abnormalities. Compared
to previous report 11/26/2022 findings are similar to previous estimated ejection fraction 45% with abnormal septal motion related to LBBB
Total time spent on this consultation/encounter __51__ minutes which includes review of history, physical exam, medications, laboratory data, personal review of imaging, extensive review of outpatient records, discussion with care team and
respiratory therapy.
Subjective Data
-
Date of Service:
Date of Service: June 17, 2024
Chief Complaint: Pulmonary Follow Up
Subjective:
No new events, remains on hep IV
Low O2 as well, no new complaints
Objective Data
Data Reviewed
Vital Signs / I&O / Oxygen:
Vital Signs
Temp Pulse Resp BP Pulse Ox
97.9 F 75 19 103/66 95
06/17/24 11:00 06/17/24 11:00 06/17/24 11:00 06/17/24 11:00 06/17/24 11:00
Intake and Output
06/16/24 06/17/24 06/18/24
06:59 06:59 06:59
Intake Total 480 / 480 480 / 480
Balance 480 / 480 480 / 480
SaO2 95
Nasal Cannula flow liters per 2
minute
Physical Exam
General: Comfortable and Other (NAD)
HEENT: Normocephalic, Anicteric and Moist Mucous Membranes
Cardiovascular: S1-S2 and Regular Rhythm
Respiratory: Clear and Non-Labored Respirations
GI: Soft, Non Distended and Non Tender
Neurology: Awake, Alert, Oriented and No Motor Deficits
Skin: Warm, Dry and Good Color
Labs/Micro/Reports
Lab Data
06/16/24 03:56
06/17/24 07:23
Laboratory Results
06/16/24 06/17/24
19:32 04:12
APTT 58.7 H > 200 H*
[2024-06-17 15:00] VITALS: BP 117/74
--- NOTE | 2024-06-17 15:03 | W.PN.HOSP.TC ---
Today's Communication/Plan
-
Transition to Eliquis
Home O2 assessment
Assessment / Plan
Assessment / Plan
A/P: Patient is a 63y F with PMH significant for breast cancer, prior DVT and cardiomyopathy who presents to ED complaining of chest pain and SOB that woke her from sleep.
Pulmonary Emboli
RLL Pulmonary Infarct. Lower extremity peripheral Doppler negative for DVT
Respiratory and hemodynamic status stable while on IV heparin.
Transition to Eliquis.
Home O2 assessment.
Pulmonary input appreciated.
Remains with significant right back pain secondary to pulmonary infarct.
Continue incentive spirometry and current medication regimen including atenolol/oxycodone/IV morphine
COVID-19 Infection
- Maintain droplet precautions for now - though doubt active spread at this point.
- Initial symptoms on 06/02 and s/p 5 days of Paxlovid (then recurrent / rebound symptoms).
- Afebrile and states that cough / headache are beginning to improve.
- Patient is vaccinated / boosted versus SARS-CoV-2.
- Follow temperature curve. Monitor for any new / worsening symptoms.
Non-Ischemic Cardiomyopathy suspected secondary to Adriamycin.
Chronic HFmrEF
- Thought secondary to prior chemotherapy.
- Echo was just completed 05/2024 with LVEF = 45%.
- Would hold on repeat for now with stable hemodynamics, normal trop / BNP and no evidence for RV strain on CT imaging.
- Continue current med regimen including Farxiga, lisinopril, etc.
Hypothyroidism
- Stable. Continue T4 replacement.
History of Breast Cancer
- s/p surgery, chemo and XRT.
- No active issues per patient.
DVT Prophylaxis: On IV heparin.
Code Status: Full
Anticipated Discharge: 24 - 48 hours
Subjective/Interval History
-
Date of Service: June 17, 2024
Objective Data
-
Labs:
Laboratory Results
06/17/24 06/17/24 06/17/24
04:12 07:23 13:30
APTT > 200 H* 118.0 H
Sodium 132 L
Potassium 4.7
Chloride 91 L
Carbon Dioxide 32 H
BUN 14
Creatinine 0.7
Glucose 99
Calcium 9.1
06/17/24
19:11
APTT Pending
Sodium
Potassium
Chloride
Carbon Dioxide
BUN
Creatinine
Glucose
Calcium
Vital Signs:
Vital Signs
Temp Pulse Resp BP Pulse Ox
97.9 F 75 19 103/66 95
06/17/24 11:00 06/17/24 11:00 06/17/24 11:00 06/17/24 11:00 06/17/24 11:00
I&O
06/16/24 06/17/24 06/18/24
06:59 06:59 06:59
Intake Total 480 / 480 480 / 480
Balance 480 / 480 480 / 480
Physical Exam
-
General: Well Developed and No Apparent Distress
HEENT: Normocephalic, Atraumatic and Moist Mucous Membranes
Respiratory: Clear to Auscultation
Cardiac: Regular Rhythm and S1/S2; Negative Murmur, Rub or Gallop
GI: Soft, Nontender, Nondistended and Normal Bowel Sounds; Negative Organomegaly
Rectal: Deferred by Provider
Musculoskeletal: No Clubbing, No Cyanosis and No Edema
Skin: Negative Rash
Neuro: Nonfocal/Grossly Intact
[2024-06-17 19:21] VITALS: BP 112/66
[2024-06-17] MEDS: ELIQUIS 10 MG PO (20:17)
[2024-06-17 23:01] VITALS: BP 109/70
[2024-06-17] MEDS: ANESTHETIC LOZENGE 1 LOZENGE PO (23:17)
--- NOTE | 2024-06-18 01:02 | PTCARENOTE ---
Received patient in bed upon arrival. AAOX3. 02 @ 2L [address] with no SOB or distress noted. Pleasant and cooperative with care. Call hassan within reach.
[2024-06-18 03:28] VITALS: BP 128/79
[2024-06-18] MEDS: SYNTHROID 100 MCG PO (04:45)
[2024-06-18] MEDS: TYLENOL 650 MG PO (04:45)
[2024-06-18 05:54] VITALS: BMI 28.5
[2024-06-18 07:00] VITALS: BP 118/70
[2024-06-18 07:56] LABS: Hematocrit 40.5 % (37.0-47.0); Hemoglobin 13.4 g/dL (12.0-16.0); Mean Corp Hgb Conc. 33.1 g/dL (33.0-37.0); Mean Corpuscular Hgb 29.4 pg (27.0-31.0); Mean Corpuscular Volume 88.8 fL (81.0-99.0); Platelet Count 274 10^3/uL (130-400); Red Blood Cell Count 4.56 10^6/uL (4.20-5.40); Red Cell Dist. Width 12.4 % (11.5-14.5); White Blood Cell Count 9.6 10^3/uL (4.8-10.8)
[2024-06-18] MEDS: PROTONIX 40 MG PO (08:30)
[2024-06-18] MEDS: ELIQUIS 10 MG PO (08:30)
[2024-06-18] MEDS: LOPRESSOR 12.5 MG PO (08:30)
[2024-06-18] MEDS: LOW STRENGTH ASPIRIN PO ×2 (08:30→08:38)
[2024-06-18] MEDS: FARXIGA 10 MG PO (08:30)
[2024-06-18] MEDS: COMPAZINE 5 MG IV (08:30)
[2024-06-18] MEDS: ZESTRIL 2.5 MG PO (08:30)
[2024-06-18 11:00] VITALS: BP 110/65
--- NOTE | 2024-06-18 11:29 | W.PN.PUL3 ---
Today's Communication / Plan
-
Transitioned to [facility], tolerating -- off IV heparin
Home O2 eval pending
Discharge planning per team
Outpatient pulm FU recommended
Assessment
-
63-year-old female history of breast cancer, prior DVT, ischemic cardiomyopathy who presented with shortness of breath and chest pain, found to have a pulmonary embolism-pulmonary consult for pulmonary embolism 06/16/24.
Pulmonary embolism-small to moderate clot burden without evidence for strain-unprovoked except somewhat sedentary and covid infection
PESI 114 class IV high risk, no evidence for right ventricular strain
Pulmonary infarct.
Covid infection-symptom onset 06/02. Status post 5 days Plaxlovid then recurrent with rebound.
Vaccinated and boosted
Nonischemic cardiomyopathy with reduced EF 45%.
Leukocytosis.
Mild hyperglycemia
Conditions present prior to admission:
Breast cancer status post lumpectomy, chemotherapy, radiation
ischemic cardiomyopathy.
Chronic heart failure -reduced EF-related to prior chemotherapy
DVT 2012.
Hypothyroid.
Obesity
Left lumpectomy. Tonsillectomy.. port placement/removal. D and E.
Plan
Patient will be admitted to telemetry
Supplemental oxygen as needed, 95% on 2L--home O2 eval
Aspiration precautions
Incentive spirometry
CT chest personally reviewed--See below
Check echocardiogram--reviewed with low function, h/o NICM/stable EF
Lower extremity ultrasound negative for DVT
May need eventual hypercoagulable workup, has fam hx of VTE
Full PESI -Score above
Heparin drip ongoing
Transitioned to eliis per team
Benefits and risks of thrombolytics therapy were reviewed with patient
Patient has mild tachycardia and no hypotension-currently risks of aggressive thrombolytic therapy outweigh [id number] notified of options, reasons for conservative standard of care therapy and is in agreement
DVT prophylaxis-on full anticoagulation
Early nutrition
Early mobilization
Outpatient pulmonary follow-up
Outpatient appropriate malignancy screening including colonoscopy and prostate exam
Studies:
Chest x-ray 06/16/24-NAD
CT chest, abdomen and pelvis 01/16/21-status post left lumpectomy, no CT evidence for recurrent malignancy, fatty infiltration of the liver,.
CT chest 06/16/24-peripheral pulmonary emboli in the lingula in the right lower lobe, no evidence for right ventricular strain.
Lower extremity ultrasound 06/16/24-no evidence for DVT.
Echocardiogram 05/18/24-Mildly reduced left ventricular function. Estimated ejection fraction of 45 to 50%. Abnormal septal motion related to IVCD. Possible inferoseptal and anteroseptal hypokinesis. No significant valve abnormalities. Compared
to previous report 11/26/2022 findings are similar to previous estimated ejection fraction 45% with abnormal septal motion related to LBBB
Total time spent on this consultation/encounter __51__ minutes which includes review of history, physical exam, medications, laboratory data, personal review of imaging, extensive review of outpatient records, discussion with care team and
respiratory therapy.
Subjective Data
-
Date of Service:
Date of Service: June 18, 2024
Chief Complaint: Pulmonary Follow Up
Subjective:
Doing well, transitioned to Eliquis
No new complaints
Objective Data
Data Reviewed
Vital Signs / I&O / Oxygen:
Vital Signs
Temp Pulse Resp BP Pulse Ox
98.5 F 73 21 118/70 96
06/18/24 07:00 06/18/24 07:00 06/18/24 07:00 06/18/24 08:30 06/18/24 07:00
Intake and Output
06/17/24 06/18/24 06/19/24
06:59 06:59 06:59
Intake Total 480 / 480 960 / 960
Balance 480 / 480 960 / 960
SaO2 96
Nasal Cannula flow liters per 2
minute
Physical Exam
General: Comfortable and Other (NAD)
HEENT: Normocephalic, Anicteric and Moist Mucous Membranes
Cardiovascular: S1-S2 and Regular Rhythm
Respiratory: Clear and Non-Labored Respirations
GI: Soft, Non Distended and Non Tender
Neurology: Awake, Alert, Oriented and No Motor Deficits
Skin: Warm, Dry and Good Color
Labs/Micro/Reports
Lab Data
06/18/24 06:57
06/17/24 07:23
Laboratory Results
06/17/24 06/17/24
13:30 19:11
APTT 118.0 H Cancelled
[2024-06-18] MEDS: COLACE 100 MG PO (11:33)
[2024-06-18] MEDS: MIRALAX 17 GRAMS PO (11:33)
--- NOTE | 2024-06-18 12:52 | W.DS.TRANS ---
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
-
Discharge Instructions:
Discharge Diagnosis/Procedures Acute Pulmonary Embolism
Diet Regular
Instructions:
Stand-Alone Forms:
Changes to Home Medications: Yes
Discharge Medications:
DC Medications w/original date entered in [employer]
lisinopril 2.5 mg tablet 2.5 mg PO DAILY #90 tabs 09/05/18
metoprolol tartrate 25 mg tablet 12.5 mg PO BID 09/05/18
acetaminophen 500 mg tablet (Tylenol Extra Strength) 1,000 mg PO Q6HPRN PRN headaches 06/16/24
dapagliflozin propanediol 10 mg tablet (Farxiga) 10 mg PO DAILY 06/16/24
esomeprazole magnesium 20 mg capsule,delayed release (Nexium) 20 mg PO DAILY 06/16/24
levothyroxine 100 mcg tablet 100 mcg PO DAILY 06/16/24
apixaban 5 mg tablet (Eliquis) 5 mg PO BID #60 tabs 06/18/24
ondansetron HCl 4 mg tablet 4 mg PO Q8HPRN PRN nausea and vomiting #20 tabs 06/18/24
oxycodone 5 mg tablet 5 mg PO Q6HPRN PRN moderate pain #14 tabs 06/18/24
Home Medication Changes
Eliquis initiated for acute pulmonary embolism
Pending Results: No
--- NOTE | 2024-06-18 13:50 | CM ---
local sales manager reviewed patient's chart and met with patient and patient lives with her spouse in a 2 story home, one step to enter, patient is independent with adl's and ambulation, no dme, patient drives, patient will be new to Eliquis and cost
will be $47 per month. Patient provided with coupon for Eliquis. Patient did not qualify for home oxygen.
PCP: Nena Mott
Pharmacy: [facility]
Plan; Home today no needs.
== END 2024-06-18 13:55 | disposition home or self-care (01) | DRG 176 ==
LOC: 4 WEST ACU 06:34
PROVIDERS: ADMITTING PHYSICIAN Hospitalist; ATTENDING PHYSICIAN Internal Medicine; CONSULT PHYSICIAN Internal Medicine Critical Care Medicine; EMERGENCY PHYSICIAN Student in an Organized Health Care Education/Training Program; FAMILY PHYSICIAN Student in an Organized Health Care Education/Training Program
DX: I26.99 Other pulmonary embolism without acute cor pulmonale (principal); I42.7 Cardiomyopathy due to drug and external agent; I50.22 Chronic systolic (congestive) heart failure; E03.9 Hypothyroidism, unspecified; E66.9 Obesity, unspecified; Z68.28 Body mass index [BMI] 28.0-28.9, adult
CPT/HCPCS: 71046; 71275; 80048; 80053; 83880; 84439; 84443; 84484; 85025; 85027; 85610; 85730; 93005; 93970; 96374; 96375; 99291; Q9967

== ENCOUNTER 2024-06-20 03:15 | Emergency (ER) | payer BC, SELFPAY ==
[2024-06-20 03:18] VITALS: BP 139/82; BMI 29.2
[2024-06-20 03:49] LABS: % Basophils 0.4 % (0-2); % Eosinophils 1.1 % (0-6); % Immature Granulocytes 0.5 % (0-0.5); % Lymphocytes 31.9 % (20.5-51.1); % Monocytes 5.9 % (1.7-9.3); % Neutrophils 60.2 % (42.2-75.2); Absolute Eosinophils 0.1 10^3/uL (0-0.7); Absolute Lymphocytes 2.4 10^3/uL (1.2-3.4); Absolute Monocytes 0.4 10^3/uL (0.1-0.6); Absolute Neutrophils 4.5 10^3/uL (1.4-6.5); Hemoglobin 13.9 g/dL (12.0-16.0); Mean Corp Hgb Conc. 33.1 g/dL (33.0-37.0); Mean Corpuscular Volume 87.5 fL (81.0-99.0); Mean Platelet Volume 8.6 fL (7.4-10.4); Nucleated Red Blood Cells % 0 %; Platelet Count 318 10^3/uL (130-400); Red Cell Dist. Width 12.3 % (11.5-14.5); White Blood Cell Count 7.5 10^3/uL (4.8-10.8)
[2024-06-20 04:00] VITALS: BP 112/58
[2024-06-20 04:06] LABS: ALT (SGPT) 17 U/L (0-35); AST (SGOT) 24 U/L (14-36); Alkaline Phosphatase 84 U/L (38-126); Blood Urea Nitrogen 15 mg/dl (7-17); Calcium 9.1 mg/dl (8.4-10.2); Carbon Dioxide 30 mmol/L (22-30); Chloride 98 mmol/L (98-107); Estimated Creatinine Clearance 82 ml/min; Glucose 100 mg/dl (70-99); Potassium 3.8 mmol/L (3.5-5.1); Sodium 139 mmol/L (135-145); Total Bilirubin 0.6 mg/dl (0.2-1.3); Total Protein 6.8 g/dl (6.3-8.2); eGFR > 60.00
[2024-06-20 04:18] LABS: Troponin I < 0.012 ng/ml
--- NOTE | 2024-06-20 06:40 | ED.GENMED ---
History of Present Illness
<Laith Means MD, Resident - Last Filed: 06/20/24 09:14>
General
Chief Complaint: Numbness
Source: patient and spouse
Exam Limitations: none
Time Seen by Provider: 06/20/24 06:21
Nursing documentation reviewed up to this point in time: agreed with
Travel History
Have you traveled to any high risk areas for coronavirus over the past 14 days?: No
Have you had any contact with someone who has COVID-19?: No
Do you have any symptoms of coronavirus? Fever > 100 degrees, chills, cough, shortness of breath, sore throat, loss of taste or smell, muscle aches, or headache?: No
History of Present Illness
History of Present Illness:
63-year-old female with PMH of DVT, ischemic cardiomyopathy, breast cancer,discharged from this hospital on 06/18/2024 for right lower lobe PE with right lower lobe infarct, who presented to the emergency department today with complaints of complete
left-sided numbness that started when she woke up at 2 AM. At that time, patient was able to move all extremities, talk and respond to conversations appropriately. Her symptoms resolved within 30 minutes and patient decided to come in to ensure
nothing else is going on. Patient is compliant with her Eliquis. Patient denies any chest pain, shortness of breath, headaches, vision changes, slurred speech, weakness, nausea, vomiting, fever, chills, abdominal pain.
If applicable-neuro sx onset
Onset of symptoms known: Yes
Date of onset of symptoms: 06/20/24
Time of onset of symptoms: 02:00
Time pt last seen normal is known: Yes
Date last time pt seen normal: 06/19/24
Time last time pt seen normal: 11:30
Past History
<Laith Means MD, Resident - Last Filed: 06/20/24 09:14>
Past History
ED Past Medical History: GERD, Hypothyroidism and Other (BREAST CA)
ED Past Surgical History: Tonsilectomy and Other (H. has a history of lumpectomy on the left breast with excision, port insertion,)
Patient has exhibited threatening behavior?: No
Social History
Tobacco: Non-smoker
Alcohol: Occasional
Drug: None
Personal:
Living: with family
Employment: Employed
Review of Systems
<Laith Means MD, Resident - Last Filed: 06/20/24 09:14>
Review of Systems
Allergies reviewed?: Yes
All Other Systems: ROS reviewed and negative except as documented in HPI and ROS
Phy Exam
<Laith Means MD, Resident - Last Filed: 06/20/24 09:14>
General Physical Exam
General Presentation: well appearing and no apparent distress
General age: appears stated age
General Skin: warm and dry
General Habitus: normal
General Mental: alert
General Hydration: appears well hydrated
ENT Exam
ENT Exam: EOMI, TM's normal, neck supple, normocephalic and swallowing well
Cardiovascular Exam
Cardiovascular Exam: regular rate/rhythm, no edema, no gallop, no JVD, no murmur and normal peripheral pulses
Pulmonary Exam
Pulmonary Exam: lungs clear, no respiratory distress, no rales, chest non tender, no crackles, no rhonchi, no wheezing and no cough
NIH Stroke Score
Level of Consciousness: 0 - Alert
LOC questions: 0-Answers both correctly
LOC Commands: 0-Performs both correctly
Best Gaze: 0-Normal
Visual Foster: 0=Normal, no visual loss
Facial palsy: 0=Normal, symmetrical
Motor - Right Arm: 0=No drift 10 seconds
Motor - Left Arm: 0=No drift 10 seconds
Motor - Right Le-No drift 5 seconds
Motor - Left Le-No drift 5 seconds
Limb Ataxia: 0-Absent
Sensation: 0-Normal
Best Language: 0-No aphasia
Dysarthria: 0-Normal
Extinction and Inattention: 0-No abnormality
Total Score:: 0
Mental
Mental Status: oriented to person, oriented to place and oriented to time
Describe Speech: normal speech
Cranial
Cranial Nerves: normal and no facial asymetry
Sensory
Sensory Exam: intact
Cerebellar
Cerebellar Function: normal finger to nose and normal heel to mckeon
Skin Exam
Skin Exam: normal color, warm/dry and no rash
Psychiatric Exam
Psychiatric Exam: normal mood/affect
Course
<Laith Armand Means MD, Resident - Last Filed: 06/20/24 09:14>
Orders/Labs/Results
Orders:
Orders
06/20/24 03:33
Electrocardiogram (*1) Urgent
Reason for Study: Chest Pain
06/20/24 03:34
EKG- Treatment ONCE
06/20/24 03:36
CMP [Comprehensive Metabolic Panel] Urgent
Complete Blood Count/With Diff Urgent
06/20/24 03:37
Troponin I Urgent
06/20/24 03:[address] [CT Head W/o Iv Contrast] Urgent
Comment:
Reason For Exam: numbness l side
06/20/24 07:18
Acetaminophen [Tylenol] 650 mg PO NOW STA
Abnormal Lab Results
06/20/24
03:36
Glucose 100 H mg/dl
(70-99)
06/20/24 03:36
06/20/24 03:36
Vital Signs
Initial and Last Documented VS:
Initial Vital Signs
Temp Pulse Resp BP Pulse Ox
98.1 F 89 20 139/82 95
06/20/24 03:18 06/20/24 03:18 06/20/24 03:18 06/20/24 03:18 06/20/24 03:18
Last Documented Vital Signs
Temp Pulse Resp BP Pulse Ox
98.1 F 79 15 118/74 94
06/20/24 03:18 06/20/24 07:15 06/20/24 07:15 06/20/24 07:00 06/20/24 04:00
<Hipolito Parsons, DO - Last Filed: 06/20/24 08:24>
Orders/Labs/Results
Orders:
Orders
06/20/24 03:33
Electrocardiogram (*1) Urgent
Reason for Study: Chest Pain
06/20/24 03:34
EKG- Treatment ONCE
06/20/24 03:36
CMP [Comprehensive Metabolic Panel] Urgent
Complete Blood Count/With Diff Urgent
06/20/24 03:37
Troponin I Urgent
06/20/24 03:[address] [CT Head W/o Iv Contrast] Urgent
Comment:
Reason For Exam: numbness l side
06/20/24 07:18
Acetaminophen [Tylenol] 650 mg PO NOW STA
Abnormal Lab Results
06/20/24
03:36
Glucose 100 H mg/dl
(70-99)
06/20/24 03:36
06/20/24 03:36
Vital Signs
Initial and Last Documented VS:
Initial Vital Signs
Temp Pulse Resp BP Pulse Ox
98.1 F 89 20 139/82 95
06/20/24 03:18 06/20/24 03:18 06/20/24 03:18 06/20/24 03:18 06/20/24 03:18
Last Documented Vital Signs
Temp Pulse Resp BP Pulse Ox
98.1 F 79 15 118/74 94
06/20/24 03:18 06/20/24 07:15 06/20/24 07:15 06/20/24 07:00 06/20/24 04:00
<Laith Means MD, Resident - Last Filed: 06/20/24 09:14>
MDM/Problems Addressed
Differential Diagnosis Includes:
Anxiety, pure sensory stroke, TIA
MDM/Problems Addressed:
63-year-old female with PMH of PE, DVT, breast cancer, nonischemic cardiomyopathy who came in to the ED with left-sided numbness without weakness, headaches, vision changes, or any other neurologic symptoms. Patient's symptoms resolved within 30
minutes. While in the ED, her blood pressure is 112/58, pulse 82, respiratory 16, she is afebrile and saturating at 94% on room air. Her CBC, BMP, troponin were within normal limits. Head CT without IV contrast was negative for hemorrhage or other
acute intracranial abnormalities. Her EKG shows normal sinus rhythm with LBBB which is unchanged from 06/17/2024. It is highly unlikely that patient has pure sensory stroke while on Eliquis. Patient reports that she is not having headaches which
she normally gets when she is stressed or has anxiety. We will treat with Tylenol and monitor patient for now.
<Laith Means MD, Resident - Last Filed: 06/20/24 09:14>
*Radiology
Radiology exam reviewed: preliminary read by ED provider (No hemorrhage or other acute intracranial abnormalities)
*Pulse Oximetry
Patient hypoxic: no
*EKG
Interpreted by ED Provider?: Yes
EKG Intrepretation Date: 06/20/24
EKG Intrepretation Time: 03:33
Interpretation: abnormal (Normal sinus rhythm with LBBB)
Comparison EKG: no changes
Heart Rate: 91
Rate: normal
Rhythm: sinus
[place]: normal axis
Interval: normal QT interval
QRS Pattern: normal QRS
Ischemia: no ischemia
*Critical Care Note
Total Time (30-74mins, 75-104mins- exclusive of procedures): Not Applicable
Data Reviewed
Review of Other/Old Records Reveals: Labs (Sodium 132) and Records
<Laith Means MD, Resident - Last Filed: 06/20/24 09:14>
Update Note
Update Note:
Patient reevaluated at this 9:00, feeling better said that her headache is gone, was able to drink water without any significant nausea. Neurologic exam remained stable, there is no indication for further workup with an MRI from this standpoint.
Patient will be discharged with some Tylenol and has been instructed to return to the ED if symptoms return.
ED Attending Note
<Laith Means MD, Resident - Last Filed: 06/20/24 09:14>
-
Portions of this chart may have been created with voice recognition software.� Occasional wrong word or��sound alike� substitutions may have occurred due to the inherent limitations of voice recognition software.
<Hipolito Parsons DO - Last Filed: 06/20/24 08:24>
ED Attending Note
Patient seen and examined by attending physician: Yes
I performed the substantive portion of visit, reviewed & personally made and approve the management plan that is documented in note by myself or ABDI.: Yes
ED Attending Note:
Seen with resident examined independently 63-year-old female recently mated with a PE has been on Eliquis twice daily compliant with her meds slept flat last evening for the first time had some left-sided numbness, which resolved, CT noted, she has
a nonfocal neurologic exam, does tell me she has a headache which she gets when she is stressed, typically gets better with Tylenol,
Discharge Plan
Departure
Patient Disposition: Home (Routine Discharge)
Date of Disposition: 06/20/24
Time of Disposition: 08:57
Patient with high blood pressure during this ER visit?: Yes
Condition: Good
Covid-19: Not Applicable
Discharge Problem:
Numbness, Headache
Instructions: Paresthesia (DC), BLOOD PRESSURE
Prescriptions:
No Action
metoprolol tartrate 12.5 MG tablet
12.5 mg PO BID
lisinopril 2.5 MG tablet
2.5 mg PO DAILY Qty: 90 2RF
esomeprazole magnesium [Nexium] 20 mg Capsule,Delayed Release(Dr/Ec)
20 mg PO DAILY
levothyroxine 100 mcg Tablet
100 mcg PO DAILY
dapagliflozin propanediol [Farxiga] 10 mg Tablet
10 mg PO DAILY
acetaminophen [Tylenol Extra Strength] 500 mg Tablet
1,000 mg PO Q6HPRN PRN (Reason: headaches)
oxycodone 5 mg Tablet
5 mg PO Q6HPRN PRN (Reason: moderate pain) Qty: 14 0RF
ondansetron HCl 4 mg tablet
4 mg PO Q8HPRN PRN (Reason: nausea and vomiting) Qty: 20 0RF
Eliquis 5 mg tablet
5 mg PO BID Qty: 60 2RF
Rx Instructions:
take 10 mg bid for 7 days and change to 5 mg BID on day 8
Referrals:
Nena Mott MD [Family Provider] -
Interventions
Interventions:
*Risk Screen - Suicide Last Done: 06/20/24 03:18
*General Assessment Last Done: 06/20/24 03:18
*Neglect/Abuse Screening Last Done: 06/20/24 03:18
ED- Fall Risk Assessment Last Done: 06/20/24 03:18
*ED COVID-19 Vaccine History Last Done: 06/20/24 03:18
ED- Neurological Assessment Last Done: 06/20/24 08:51
Discharge Date and Time
Print Language: [id number]
[2024-06-20 07:00] VITALS: BP 118/74
[2024-06-20] MEDS: TYLENOL 650 MG PO (07:34)
[2024-06-20 08:00] VITALS: BP 109/55
[2024-06-20 09:00] VITALS: BP 106/69
== END 2024-06-20 09:15 | disposition home or self-care (01) ==
LOC: EMR 03:15
PROVIDERS: Emergency Medicine; EMERGENCY PHYSICIAN Emergency Medicine; FAMILY PHYSICIAN Student in an Organized Health Care Education/Training Program
DX: R20.0 Anesthesia of skin (principal); R51.9 Headache, unspecified; I25.5 Ischemic cardiomyopathy; E03.9 Hypothyroidism, unspecified; K21.9 Gastro-esophageal reflux disease without esophagitis; Z79.01 Long term (current) use of anticoagulants; Z85.3 Personal history of malignant neoplasm of breast; Z86.718 Personal history of other venous thrombosis and embolism
CPT/HCPCS: 99284; 70450; 80053; 84484; 85025; 93005

== ENCOUNTER → 2024-12-27 19:01 | Outpatient (REF) | payer BC, SELFPAY | LOC: WDC 19:01 | PROVIDERS: ATTENDING PHYSICIAN Obstetrics & Gynecology Gynecology; FAMILY PHYSICIAN Student in an Organized Health Care Education/Training Program | DX: Z12.31 Encounter for screening mammogram for malignant neoplasm of breast (principal) | CPT/HCPCS: 77063; 77067 ==

== ENCOUNTER → 2025-02-22 09:54 | Outpatient (REF) | payer BC, SELFPAY | LOC: MRI 3T 09:54 | PROVIDERS: ATTENDING PHYSICIAN Student in an Organized Health Care Education/Training Program | DX: Z85.3 Personal history of malignant neoplasm of breast (principal); G45.9 Transient cerebral ischemic attack, unspecified | CPT/HCPCS: 70553; A9575 ==

== ENCOUNTER → 2025-05-08 06:36 | Outpatient (REF) | payer BC, SELFPAY | LOC: MRI 06:36 | PROVIDERS: ATTENDING PHYSICIAN Psychiatry & Neurology Neurology; FAMILY PHYSICIAN Student in an Organized Health Care Education/Training Program | DX: G45.9 Transient cerebral ischemic attack, unspecified (principal); Q28.3 Other malformations of cerebral vessels; G43.109 Migraine with aura, not intractable, without status migrainosus; R20.0 Anesthesia of skin | CPT/HCPCS: 70544; 70547 ==